=== PATIENT | female | born 1995 | race Caucasian/White ===

== ENCOUNTER 2017-01-19 19:05 | Emergency (ER) | payer BC ==
[2017-01-19 19:29] VITALS: BP 123/78
--- NOTE | 2017-01-19 19:52 | EDM.PDOC ---
ED HPI GENERAL MEDICAL PROBLEM - General Chief Complaint: Genitourinary Problem Stated Complaint: PELVIC PAIN Time Seen by Provider: 01/19/17 19:38 Source of Information: Reports: Patient, RN Notes Reviewed History Limitations: Reports: No Limitations - History of Present Illness INITIAL COMMENTS - FREE TEXT/NARRATIVE: 21-year-old female presents emergency department day complaint of pelvic pain, she states is been ongoing for 5 days was intermittent and now has progressed to a constant sharp stabbing pain lower left side she denies any vaginal bleeding or discharge last menstrual cycle was about 2-1/2 weeks ago is on control denies any fevers no problems with bowel movements or urination shortness of breath or chest pain 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 left sided pelvic pain Pain Score (Numeric/FACES): 4 - Related Data Allergies Allergy/AdvReac Type Severity Reaction Status Date / Time latex Allergy Hives Verified 01/19/17 19:26 Home Meds: Home Meds Levothyroxine [Sythroid] 100 mcg PO DAILY 04/21/16 [History] Past Medical History 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: Musculoskeletal History: Reports: Fracture Neurological History: Reports: Migraines Endocrine/Metabolic History: Reports: Hypothyroidism - Past Surgical History HEENT Surgical History: Reports: Oral Surgery GI Surgical History: Reports: Colonoscopy Social & Family History - Tobacco Use Smoking Status *Q: Current Every Day Smoker Years of Tobacco use: 3 Packs/Tins Daily: 0.5 - Caffeine Use Caffeine Use: Reports: Energy Drinks, Soda - Recreational Drug Use Recreational Drug Use: No ED ROS GENERAL - Review of Systems Review Of Systems: See Below Constitutional: Reports: No Symptoms HEENT: Reports: No Symptoms Respiratory: Reports: No Symptoms Cardiovascular: Reports: No Symptoms GI/Abdominal: Reports: No Symptoms : Reports: Pain (Pelvic pain). Denies: Discharge, Dysuria, Frequency, Hematuria, Irregular Menses, Urinary Retention Musculoskeletal: Reports: No Symptoms Skin: Reports: No Symptoms ED EXAM, RENAL/ - Physical Exam Exam: See Below Exam Limited By: No Limitations General Appearance: Alert, WD/WN, No Apparent Distress Respiratory/Chest: No Respiratory Distress, Lungs Clear, Normal Breath Sounds, No Accessory Muscle Use Cardiovascular: Regular Rate, Rhythm, No Murmur GI/Abdominal: Normal Bowel Sounds, Soft, No Distention, Tender (Left lower into the pelvis). No: Guarding, Rigid, Rebound Back Exam: Normal Inspection, Full Range of Motion. No: CVA Tenderness (R), CVA Tenderness (L) Course - Vital Signs Last Recorded V/S: Last Vital Signs Temp 99.1 F 01/19/17 19:28 Pulse 82 01/19/17 19:28 Resp 16 01/19/17 19:28 BP 123/78 01/19/17 19:28 Pulse Ox 100 01/19/17 19:28 - Orders/Labs/Meds Orders: Active Orders 24 hr Category Date Time Status Pelvis Non OB Comp [US] Urgent Exams 01/19/17 19:47 Taken Transvaginal Non OB [US] Stat Exams 01/19/17 Taken CULTURE URINE [RM] Urgent Lab 01/19/17 22:07 Ordered Labs: Laboratory Tests 01/19/17 01/19/17 01/19/17 Range/Units 19:27 19:58 19:58 WBC 8.4 (4.5-11.0) K/uL RBC 4.61 (3.30-5.50) M/uL Hgb 14.4 (12.0-15.0) g/dL Hct 41.7 (36.0-48.0) % MCV 91 (80-98) fL MCH 31 (27-31) pg MCHC 35 (32-36) % Plt Count 228 (150-400) K/uL Neut % (Auto) 47 (36-66) % Lymph % (Auto) 43 (24-44) % Bennett % (Auto) 7 H (2-6) % Eos % (Auto) 3 (2-4) % Baso % (Auto) 0 (0-1) % Sodium 138 L (140-148) mmol/L Potassium 4.0 (3.6-5.2) mmol/L Chloride 106 (100-108) mmol/L Carbon Dioxide 26 (21-32) mmol/L Anion Gap 10.0 (5.0-14.0) mmol/L BUN 12 (7-18) mg/dL Creatinine 0.8 (0.6-1.0) mg/dL Est Cr Clr Drug Dosing 100.10 mL/min Estimated GFR (MDRD) > 60 (>60) Glucose 88 (74-106) mg/dL Lactic Acid (0.4-2.0) mmol/L Calcium 8.5 (8.5-10.1) mg/dL Total Bilirubin 0.6 (0.2-1.0) mg/dL AST 14 L (15-37) U/L ALT 24 (12-78) U/L Alkaline Phosphatase 102 (46-116) U/L Total Protein 7.0 (6.4-8.2) g/dL Albumin 3.6 (3.4-5.0) g/dL Globulin 3.4 (2.3-3.5) g/dL Albumin/Globulin Ratio 1.1 L (1.2-2.2) Lipase 95 (73-393) U/L Urine Color Yellow Urine Appearance Clear Urine pH 5.0 (4.5-8.0) Ur Specific [place] 1.015 (1.008-1.030) Urine Protein Negative (NEGATIVE) mg/dL Urine Glucose (UA) Normal (NEGATIVE) mg/dL Urine Ketones Negative (NEGATIVE) mg/dL Urine Occult Blood Negative (NEGATIVE) Urine Nitrite Negative (NEGATIVE) Urine Bilirubin Negative (NEGATIVE) Urine Urobilinogen Normal (NORMAL) mg/dL Ur Leukocyte Esterase Moderate (NEGATIVE) Urine RBC 0-5 (0-5) Urine WBC 5-10 H (0-5) Ur Epithelial Cells Moderate Amorphous Sediment Few Urine Bacteria Few Urine Mucus Few Urine HCG, Qual 01/19/17 01/19/17 Range/Units 19:58 21:58 WBC (4.5-11.0) K/uL RBC (3.30-5.50) M/uL Hgb (12.0-15.0) g/dL Hct (36.0-48.0) % MCV (80-98) fL MCH (27-31) pg MCHC (32-36) % Plt Count (150-400) K/uL Neut % (Auto) (36-66) % Lymph % (Auto) (24-44) % Bennett % (Auto) (2-6) % Eos % (Auto) (2-4) % Baso % (Auto) (0-1) % Sodium (140-148) mmol/L Potassium (3.6-5.2) mmol/L Chloride (100-108) mmol/L Carbon Dioxide (21-32) mmol/L Anion Gap (5.0-14.0) mmol/L BUN (7-18) mg/dL Creatinine (0.6-1.0) mg/dL Est Cr Clr Drug Dosing mL/min Estimated GFR (MDRD) (>60) Glucose (74-106) mg/dL Lactic Acid 0.8 (0.4-2.0) mmol/L Calcium (8.5-10.1) mg/dL Total Bilirubin (0.2-1.0) mg/dL AST (15-37) U/L ALT (12-78) U/L Alkaline Phosphatase (46-116) U/L Total Protein (6.4-8.2) g/dL Albumin (3.4-5.0) g/dL Globulin (2.3-3.5) g/dL Albumin/Globulin Ratio (1.2-2.2) Lipase (73-393) U/L Urine Color Urine Appearance Urine pH (4.5-8.0) Ur Specific [place] (1.008-1.030) Urine Protein (NEGATIVE) mg/dL Urine Glucose (UA) (NEGATIVE) mg/dL Urine Ketones (NEGATIVE) mg/dL Urine Occult Blood (NEGATIVE) Urine Nitrite (NEGATIVE) Urine Bilirubin (NEGATIVE) Urine Urobilinogen (NORMAL) mg/dL Ur Leukocyte Esterase (NEGATIVE) Urine RBC (0-5) Urine WBC (0-5) Ur Epithelial Cells Amorphous Sediment Urine Bacteria Urine Mucus Urine HCG, Qual Negative Departure - Departure Time of Disposition: 22:09 Disposition: Home, Self-Care 01 Condition: Good Clinical Impression: Urinary tract infection Qualifiers: Urinary tract infection type: acute cystitis Hematuria presence: without hematuria Qualified Code(s): N30.00 - Acute cystitis without hematuria - Discharge Information Referrals: Hien Sherwood RN [Primary Care Provider] - Forms: ED Department Discharge Additional Instructions: Take full course of antibiotics, Please followup with your primary care provider in 3-5 days if not better, please call return to the emergency department with worsening of symptoms. - My Orders Last 24 Hours: My Active Orders 01/19/17 Transvaginal Non OB [US] Stat 01/19/17 19:47 Pelvis Non OB Comp [US] Urgent 01/19/17 22:07 CULTURE URINE [RM] Urgent - Assessment/Plan Last 24 Hours: My Active Orders 01/19/17 Transvaginal Non OB [US] Stat 01/19/17 19:47 Pelvis Non OB Comp [US] Urgent 01/19/17 22:07 CULTURE URINE [RM] Urgent Plan: Assessment Acuity = acute Site and laterality = urinary tract infection Etiology = probable bacterial cause Manifestations = none Location of injury = Home Lab values = CBC, CMP unremarkable urinalysis reveals 5-10 WBCs cultures pending Plan Placed on Bactrim DS one tab by mouth twice a day 3 days follow-up with primary care in 3-5 days if not better Patient was in agreement with the plan all questions were answered, they were instructed to return to the emergency department or call for worsening symptoms. This note was dictated using [employer] voice recognition software please call with any questions.
== END 2017-01-19 22:17 | disposition home or self-care (01) ==
LOC: JP.ED 19:05
DX: N30.00 Acute cystitis without hematuria (principal); F17.210 Nicotine dependence, cigarettes, uncomplicated; Z91.040 Latex allergy status
CPT/HCPCS: 36415; 76830; 76856; 80053; 81001; 81025; 83605; 83690; 85025; 87086; 99284-25

== ENCOUNTER 2018-04-06 19:46 | Emergency (ER) | payer BC, MEDICAID, OTHER ==
[2018-04-06 20:10] VITALS: BP 125/96
--- NOTE | 2018-04-06 20:34 | EDM.PDOC ---
ED HPI GENERAL MEDICAL PROBLEM - General Chief Complaint: Head Injury Stated Complaint: CONCUSSION Time Seen by Provider: 04/06/18 20:20 Source of Information: Reports: Patient History Limitations: Reports: No Limitations - History of Present Illness INITIAL COMMENTS - FREE TEXT/NARRATIVE: 23-year-old female who slipped on the ice and struck the back of her head on a running board of a pickup at 3 AM, went to work tonight at 5:00 but had to leave because of persistent headaches. No visual complaints, nausea or vomiting or significant neck pain. No peripheral paresthesias or weakness. 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: Musculoskeletal History: Reports: Fracture Neurological History: Reports: Migraines Psychiatric History: Reports: Anxiety, Depression Endocrine/Metabolic History: Reports: Hypothyroidism - Past Surgical History HEENT Surgical History: Reports: Oral Surgery GI Surgical History: Reports: Colonoscopy Social & Family History - Tobacco Use Smoking Status *Q: Current Every Day Smoker Years of Tobacco use: 7 Packs/Tins Daily: 0.5 - Caffeine Use Caffeine Use: Reports: Energy Drinks, Soda - Recreational Drug Use Recreational Drug Use: No ED ROS GENERAL - Review of Systems Review Of Systems: See Below Constitutional: Denies: Fever, Chills HEENT: Denies: Vision Change Respiratory: Denies: Shortness of Breath, Cough Cardiovascular: Denies: Chest Pain GI/Abdominal: Denies: Abdominal Pain, Nausea, Vomiting Skin: Reports: No Symptoms Neurological: Reports: Headache. Denies: Dizziness Psychiatric: Reports: No Symptoms ED EXAM, HEAD INJURY - Physical Exam Exam: See Below Exam Limited By: No Limitations General Appearance: Alert, No Apparent Distress Head: Other (The lower occipital area of the skull is tender to palpation but there is no significant hematoma. There is some soreness with rotation of the neck, but no limitation) Eyes: Bilateral Eye: Normal Inspection Throat/Mouth: Normal Inspection Neck: Full Range of Motion, Painful Range of Motion (Some soreness with rotation or side to side). No: Paraspinous Muscle Tender Respiratory: No Respiratory Distress Neurologic: No Motor/Sensory Deficits, Alert, Oriented x 3, Other (Romberg negative). No: Motor Weakness Skin: Normal Color - Yao Coma Score Best Eye Response (Yao): (4) Open Spontaneously Best Verbal Response ([place]): (5) Oriented Best Motor Response (Yao): (6) Obeys Commands Course - Vital Signs Last Recorded V/S: Last Vital Signs Temp 97.9 F 04/06/18 20:10 Pulse 95 04/06/18 20:10 Resp 18 04/06/18 20:10 BP 125/96 H 04/06/18 20:10 Pulse Ox 97 04/06/18 20:10 - Orders/Labs/Meds Meds: Medications Discontinued Medications Generic Name Dose Route Start Last Admin Trade Name Biq PRN Reason Stop Dose Admin Ibuprofen 600 mg 04/06/18 21:28 04/06/18 21:34 Motrin PO 04/06/18 21:29 600 mg ONETIME ONE Administration - Re-Assessments/Exams Free Text/Narrative Re-Assessment/Exam: 04/06/18 20:[address] of the head without contrast was obtained. 04/06/18 21:33 CT was normal. Patient was given 600 mg of ibuprofen and some information on a concussion. Also a note for work tonight. Departure - Departure Time of Disposition: 21:44 Disposition: Home, Self-Care 01 Condition: Good Clinical Impression: Concussion with no loss of consciousness - Discharge Information Instructions: Concussion, Adult, [id number] Referrals: PCP,None [Primary Care Provider] - Forms: ED Department Discharge Care Plan Goals: Rest tonight, use Tylenol or ibuprofen for headache over the next several days and recheck in 5-7 days if not improving satisfactorily. Return sooner if worsening or concerns.
[2018-04-06] MEDS ORDERED: Ibuprofen 600 MG Tab PO ONE (21:28)
== END 2018-04-06 21:44 | disposition home or self-care (01) ==
LOC: JP.ED 19:46
DX: S06.0X0A Concussion without loss of consciousness, initial encounter (principal); F17.210 Nicotine dependence, cigarettes, uncomplicated; E03.9 Hypothyroidism, unspecified; Z91.040 Latex allergy status; Z79.899 Other long term (current) drug therapy; W00.0XXA Fall on same level due to ice and snow, initial encounter
CPT/HCPCS: 70450; 99284; A9270; 99283

== ENCOUNTER 2018-08-01 19:24 | Emergency (ER) | payer BC ==
[2018-08-01 20:23] VITALS: BP 109/72
--- NOTE | 2018-08-01 20:28 | EDM.PDOC ---
ED HPI GENERAL MEDICAL PROBLEM - General Chief Complaint: Abdominal Pain Stated Complaint: STOMACH PAIN Time Seen by Provider: 08/01/18 20:15 Source of Information: Reports: Patient History Limitations: Reports: No Limitations - History of Present Illness INITIAL COMMENTS - FREE TEXT/NARRATIVE: 23-year-old female with left lower quadrant pain for the past 2 days. She had a similar issue several months ago and it was due to her IUD moving. She has no vaginal discharge or fever. Denies nausea or vomiting. No urinary symptoms. 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 (see below) Other Treatments DONOR RECRUITMENT MANAGER: unknown Left Abdomen Pain Score (Numeric/FACES): 4 - Related Data Allergies Allergy/AdvReac Type Severity Reaction Status Date / Time adhesive tape Allergy Rash Verified 08/01/18 20:14 latex Allergy Hives Verified 04/06/18 20:06 Home Meds: Home Meds Levothyroxine Sodium 8 mg PO DAILY 08/01/18 [History] Past Medical History Genitourinary History: Reports: Pyelonephritis, UTI, 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: Musculoskeletal History: Reports: Fracture Neurological History: Reports: Migraines Psychiatric History: Reports: Anxiety, Depression Endocrine/Metabolic History: Reports: Hypothyroidism - Past Surgical History HEENT Surgical History: Reports: Oral Surgery GI Surgical History: Reports: Colonoscopy Social & Family History - Family History Family Medical History: Noncontributory - Tobacco Use Smoking Status *Q: Current Every Day Smoker Years of Tobacco use: 7 Packs/Tins Daily: 0.5 Second Hand Smoke Exposure: No - Caffeine Use Caffeine Use: Reports: Soda - Recreational Drug Use Recreational Drug Use: No ED ROS GENERAL - Review of Systems Review Of Systems: See Below Constitutional: Denies: Fever, Chills, Malaise HEENT: Reports: No Symptoms Respiratory: Reports: No Symptoms GI/Abdominal: Reports: Abdominal Pain : Reports: No Symptoms Skin: Reports: No Symptoms ED EXAM, GI/ABD - Physical Exam Exam: See Below Exam Limited By: No Limitations General Appearance: Alert, No Apparent Distress (looks uncomfortable but not distressed) Eyes: Bilateral: Normal Appearance (no jaundice) Head: Atraumatic Respiratory/Chest: No Respiratory Distress, Lungs Clear Cardiovascular: Regular Rate, Rhythm GI/Abdominal Exam: Soft, Tender (some tenderness to palpation across the lower abdomen, especially the left side but no significant guarding. Minimal rebound.) Neurological: Alert, Oriented Psychiatric: Normal Affect, Normal Mood Skin Exam: Warm, Dry Course - Vital Signs Last Recorded V/S: Last Vital Signs Temp 96.9 F 08/01/18 20:22 Pulse 67 08/01/18 20:22 Resp 12 08/01/18 20:22 BP 109/72 08/01/18 20:22 Pulse Ox 98 08/01/18 20:22 - Orders/Labs/Meds Labs: Laboratory Tests 08/01/18 08/01/18 08/01/18 Range/Units 20:33 20:33 20:35 WBC 9.7 (4.5-11.0) K/uL RBC 4.58 (3.30-5.50) M/uL Hgb 14.4 D (12.0-15.0) g/dL Hct 42.8 (36.0-48.0) % MCV 93 (80-98) fL MCH 31 (27-31) pg MCHC 34 (32-36) % Plt Count 203 (150-400) K/uL Neut % (Auto) 54 (36-66) % Lymph % (Auto) 34 (24-44) % Terry % (Auto) 9 H (2-6) % Eos % (Auto) 3 (2-4) % Baso % (Auto) 1 (0-1) % Sodium (140-148) mmol/L Potassium (3.6-5.2) mmol/L Chloride (100-108) mmol/L Carbon Dioxide (21-32) mmol/L Anion Gap (5.0-14.0) mmol/L BUN (7-18) mg/dL Creatinine (0.6-1.0) mg/dL Est Cr Clr Drug Dosing mL/min Estimated GFR (MDRD) (>60) Glucose (74-106) mg/dL Calcium (8.5-10.1) mg/dL Total Bilirubin (0.2-1.0) mg/dL AST (15-37) U/L ALT (12-78) U/L Alkaline Phosphatase (46-116) U/L Total Protein (6.4-8.2) g/dL Albumin (3.4-5.0) g/dL Globulin (2.3-3.5) g/dL Albumin/Globulin Ratio (1.2-2.2) Urine Color Yellow Urine Appearance Slightly cloudy Urine pH 7.0 (4.5-8.0) Ur Specific [place] 1.010 (1.008-1.030) Urine Protein Trace (NEGATIVE) mg/dL Urine Glucose (UA) Normal (NEGATIVE) mg/dL Urine Ketones Negative (NEGATIVE) mg/dL Urine Occult Blood Negative (NEGATIVE) Urine Nitrite Negative (NEGATIVE) Urine Bilirubin Negative (NEGATIVE) Urine Urobilinogen Normal (NORMAL) mg/dL Ur Leukocyte Esterase Moderate (NEGATIVE) Urine RBC 0-5 (0-5) Urine WBC 5-10 H (0-5) Ur Epithelial Cells Few Amorphous Sediment Not seen Urine Bacteria Few Urine Mucus Not seen Urine HCG, Qual Negative 08/01/18 Range/Units 20:35 WBC (4.5-11.0) K/uL RBC (3.30-5.50) M/uL Hgb (12.0-15.0) g/dL Hct (36.0-48.0) % MCV (80-98) fL MCH (27-31) pg MCHC (32-36) % Plt Count (150-400) K/uL Neut % (Auto) (36-66) % Lymph % (Auto) (24-44) % Terry % (Auto) (2-6) % Eos % (Auto) (2-4) % Baso % (Auto) (0-1) % Sodium 140 (140-148) mmol/L Potassium 4.3 (3.6-5.2) mmol/L Chloride 102 (100-108) mmol/L Carbon Dioxide 28 (21-32) mmol/L Anion Gap 9.9 (5.0-14.0) mmol/L BUN 14 (7-18) mg/dL Creatinine 0.9 (0.6-1.0) mg/dL Est Cr Clr Drug Dosing 69.83 mL/min Estimated GFR (MDRD) > 60 (>60) Glucose 91 (74-106) mg/dL Calcium 9.0 (8.5-10.1) mg/dL Total Bilirubin 0.2 D (0.2-1.0) mg/dL AST 16 (15-37) U/L ALT 34 (12-78) U/L Alkaline Phosphatase 98 (46-116) U/L Total Protein 7.4 (6.4-8.2) g/dL Albumin 3.6 (3.4-5.0) g/dL Globulin 3.8 H (2.3-3.5) g/dL Albumin/Globulin Ratio 1.0 L (1.2-2.2) Urine Color Urine Appearance Urine pH (4.5-8.0) Ur Specific [place] (1.008-1.030) Urine Protein (NEGATIVE) mg/dL Urine Glucose (UA) (NEGATIVE) mg/dL Urine Ketones (NEGATIVE) mg/dL Urine Occult Blood (NEGATIVE) Urine Nitrite (NEGATIVE) Urine Bilirubin (NEGATIVE) Urine Urobilinogen (NORMAL) mg/dL Ur Leukocyte Esterase (NEGATIVE) Urine RBC (0-5) Urine WBC (0-5) Ur Epithelial Cells Amorphous Sediment Urine Bacteria Urine Mucus Urine HCG, Qual - Re-Assessments/Exams Free Text/Narrative Re-Assessment/Exam: 08/02/18 17:43 CBC CMP UA and urine test were obtained and were all very reassuring, and the was negative. Ultrasound of the pelvis was then obtained which showed normal placement of the IUD, significant stool but no other acute findings, no ovarian pathology. Patient will use MiraLAX for the next 1-2 days and return if worsening such as fever or increased pain, otherwise recheck in 2- 3 days if not improving satisfactorily. Departure - Departure Time of Disposition: 22:52 Disposition: Home, Self-Care 01 Condition: Good Clinical Impression: Abdominal pain Qualifiers: Abdominal location: left lower quadrant Qualified Code(s): R10.32 - Left lower quadrant pain - Discharge Information Instructions: Abdominal Pain, Adult, [id number] Referrals: Essie Hackett NP [Primary Care Provider] - Forms: ED Department Discharge Care Plan Goals: Try MiraLAX for the next few days and drink lots of water, increase activity as tolerated and return if worsening such as fever or increased pain.
--- NOTE | 2018-08-01 23:47 | CRLUS ---
INDICATION: Left lower quadrant pain TECHNIQUE: Ultrasound pelvis transabdominal. Real-time sonographic images with spectral and color Doppler imaging of the ovaries were obtained. COMPARISON: None FINDINGS: Uterus: 8.1 x 6.0 x 3.9 cm. Normal echotexture of the myometrium. No masses. Endometrium: Transvaginal imaging was performed to better evaluate the endometrium. 6 mm in thickness. No sign of endometrial mass or fluid. There is an IUD in place. Right ovary: 3.0 x 2.1 x 2.8 cm. No ovarian or adnexal masses. Normal Doppler blood flow. Left ovary: 3.0 x 2.6 x 1.8 cm. No ovarian or adnexal masses. Normal Doppler blood flow. Cul-de-sac: No significant free fluid. IMPRESSION: No acute abnormality. IUD appears appropriate in position. Dictated by Katerina Ash MD @ Aug 01 2018 11:44PM Signed by Dr. Katerina Ash @ Aug 01 2018 11:46PM
== END 2018-08-01 22:53 | disposition home or self-care (01) ==
LOC: JP.ED 19:24
DX: R10.32 Left lower quadrant pain (principal); F17.210 Nicotine dependence, cigarettes, uncomplicated; F41.9 Anxiety disorder, unspecified; F32.9 Major depressive disorder, single episode, unspecified; E03.9 Hypothyroidism, unspecified; Z79.899 Other long term (current) drug therapy; Z91.040 Latex allergy status; Z91.09 Other allergy status, other than to drugs and biological substances
CPT/HCPCS: 36415; 76856; 80053; 81001; 81025; 85025; 99284-25

== ENCOUNTER 2021-03-16 05:50 | Day surgery (SDC) | payer MEDICAID ==
[2021-03-16] MEDS ORDERED: Sodium Chloride 0.9% 1,000 ML IV SCH (06:30)
[2021-03-16] MEDS ORDERED: Bupivacaine 0.5% 50 ML MDV ONE (06:47)
[2021-03-16] MEDS ORDERED: Lidocaine 1% with EPINEPHrine 1:100,000 50 ML MDV ONE (06:47)
[2021-03-16] MEDS ORDERED: metroNIDAZOLE/Normal Saline 500 MG in Premix Bag 1 BAG IV ONE (07:00)
[2021-03-16] MEDS ORDERED: ceFAZolin 2 GM in Premix Bag 1 BAG IV ONE (07:00)
[2021-03-16] MEDS ORDERED: fentaNYL 250 MCG/5 ML SDV ONE (07:15)
[2021-03-16] MEDS ORDERED: Glycopyrrolate 0.2 MG/ML 5 ML MDV ONE (07:16)
[2021-03-16] MEDS ORDERED: Dexamethasone 4 MG/ML SDV ONE (07:16)
[2021-03-16] MEDS ORDERED: Ondansetron 4 MG/2 ML SDV ONE (07:16)
[2021-03-16] MEDS ORDERED: Succinylcholine 200 MG/10 ML MDV ONE (07:16)
[2021-03-16] MEDS ORDERED: Rocuronium 50 MG/5 ML Vial ONE (07:16)
[2021-03-16] MEDS ORDERED: Propofol 200 MG/20 ML SDV ONE (07:16)
[2021-03-16] MEDS ORDERED: Neostigmine Methylsulfate 1 MG/ML 5 ML Syringe ONE (07:16)
[2021-03-16] MEDS ORDERED: Ondansetron 4 MG/2 ML SDV IVPUSH PRN (07:53)
[2021-03-16] MEDS ORDERED: hydrOXYzine HCL 100 MG/2 ML SDV IM PRN (07:53)
[2021-03-16] MEDS ORDERED: fentaNYL 100 MCG/2 ML SDV IVPUSH PRN ×3 (07:53)
[2021-03-16] MEDS ORDERED: Acetaminophen/HYDROcodone 325-5 MG Tab PO PRN (07:53)
[2021-03-16] MEDS ORDERED: Zolpidem 5 MG Tab PO PRN (07:53)
[2021-03-16] MEDS ORDERED: Docusate Sodium 100 MG Cap PO PRN (07:53)
[2021-03-16] MEDS ORDERED: Benzocaine/Cetylpyridinium/Menthol Lozenge MUCMEM PRN (07:53)
[2021-03-16] MEDS ORDERED: Scopolamine 1.5 MG Transdermal Patch TOP SCH (08:00)
[2021-03-16] MEDS ORDERED: Ropivacaine 44 ML, dexAMETHasone 8 MG, EPINEPHrine 0.4 MG, Sodium Chloride 0.9% 33.6 ML NERVRT SCH ×4 (08:00)
[2021-03-16] MEDS ORDERED: fentaNYL 100 MCG/2 ML SDV ONE (08:28)
[2021-03-16] MEDS ORDERED: Ketorolac 30 MG/ML SDV ONE (08:42)
[2021-03-16] MEDS ORDERED: fentaNYL 100 MCG/2 ML SDV IVPUSH ONE (09:02)
[2021-03-16] MEDS ORDERED: Ondansetron 4 MG/2 ML SDV IVPUSH ONE (09:03)
--- NOTE | 2021-03-16 10:23 | OR ---
DATE OF PROCEDURE: 03/16/2021 SURGEON: Luigi Pugh MD PROCEDURE: Laparoscopic cholecystectomy. PREOPERATIVE DIAGNOSES: Cholelithiasis, cholecystitis. POSTOPERATIVE DIAGNOSES: Biliary dyskinesia, cholecystitis. RISKS: Risks, benefits, alternatives, and limitations including but not limited to infection, bleeding, perforation, false positives, false negatives, along with cystic duct leaks, common bile duct injuries, the possibility of open surgery, hematoma, seroma, and other risks not listed here were explained to the patient and she wished to proceed. PROCEDURE IN DETAIL: The patient was placed in supine position. A supraumbilical curvilinear incision was made. A Veress needle was used to enter the abdomen without abnormality. A drop test was performed without abnormality. The abdomen was subsequently insufflated. This was followed by an Optiview trocar. Additional 10 and two 5 mm ports were entered under direct visualization. The gallbladder was retracted cephalad. The infundibulum was retracted inferolaterally. Using blunt dissection, a "clear view" of the gallbladder was then obtained with a single pulsatile structure entering the gallbladder and a single non-pulsatile structure entering the gallbladder. After the clear view was obtained, these were subsequently clipped x3 and transected. The patient had additional small vein which was also clipped and subsequently transected. The remaining 1/3 of the gallbladder was removed off the gallbladder bed. The bag was delivered through the superior port. The liver was reinspected for evidence of abnormal bleeding. None was noted. The abdomen was irrigated with 1 L of irrigation. The liquid was removed. The air was removed. The wounds were closed with 3-0 Vicryl and 4-0 Vicryl in interrupted running fashion. The patient tolerated the procedure well. Luigi Pugh MD /[id number]
[2021-03-16 12:36] VITALS: BP 138/72; PULSE 71
== END 2021-03-16 13:09 | disposition home or self-care (01) ==
LOC: JP.SDS 05:50
PROVIDERS: ATTEND Surgery
DX: K81.1 Chronic cholecystitis (principal); E03.9 Hypothyroidism, unspecified; F41.9 Anxiety disorder, unspecified; F32.A Depression, unspecified; F17.210 Nicotine dependence, cigarettes, uncomplicated; Z98.890 Other specified postprocedural states; K21.9 Gastro-esophageal reflux disease without esophagitis; Z91.040 Latex allergy status
CPT/HCPCS: 47562; 81025; A9270; J0171; J0330; J0690; J1100; J1885; J2405; J2704; J2710; J2795; J3010; J3410; J3490; J7030

== ENCOUNTER 2021-03-19 05:17 | Emergency (ER) | payer MEDICAID ==
[2021-03-19 05:30] VITALS: BP 155/62; PULSE 62
[2021-03-19] MEDS ORDERED: Sodium Chloride 0.9% 10 ML Syringe FLUSH PRN (05:31)
[2021-03-19] MEDS ORDERED: Ondansetron 4 MG/2 ML SDV IVPUSH ONE ×2 (05:32→06:57)
[2021-03-19] MEDS ORDERED: HYDROmorphone 1 MG/ML Syringe IVPUSH ONE (05:32)
--- NOTE | 2021-03-19 05:38 | EDM.PDOC ---
ED HPI GENERAL MEDICAL PROBLEM - General Chief Complaint: Abdominal Pain Stated Complaint: POST OP PAIN Time Seen by Provider: 03/19/21 05:31 Source of Information: Reports: Patient History Limitations: Reports: No Limitations - History of Present Illness INITIAL COMMENTS - FREE TEXT/NARRATIVE: Imelda is a 25-year-old female presenting to the ED with severe abdominal pain, feeling hot, and nausea. Patient symptoms started around 0300 hrs. this morning when she awoke with severe abdominal pain. She last took her dose of [place] at 2000 hrs. last night. Her father gave her 3 Tylenol which has not touched the pain. The patient states the pain is a 10 out of 10 and is predominantly in the right upper quadrant and epigastric region. Since the onset, the patient states that the pain is been building in intensity. The patient underwent a laparoscopic cholecystectomy on 03/16/2021 which was performed by Dr. Pugh for cholecystitis/cholelithiasis. Abdomen Pain Score (Numeric/FACES): 8 - Related Data Allergies Allergy/AdvReac Type Severity Reaction Status Date / Time adhesive tape Allergy Rash Verified 03/16/21 06:29 latex Allergy Hives Verified 03/16/21 06:29 Home Meds: Home Meds Levothyroxine Sodium 88 mg PO DAILY 08/01/18 [History] levonorgestreL [Kyleena] 1 unit IUTERINE ASDIRECTED 03/13/21 [History] Acetaminophen/HYDROcodone [HYDROcodone-Acetaminophen 5-325 MG *] 2 tab PO ASDIRECTED 03/19/21 [History] Past Medical History Cardiovascular History: Reports: Other (See Below) Other Cardiovascular History: palpitations Gastrointestinal History: Reports: Cholelithiasis Genitourinary History: Reports: Pyelonephritis, UTI, Recurrent 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: 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: Musculoskeletal History: Reports: Fracture Neurological History: Reports: Migraines Psychiatric History: Reports: Anxiety, Depression Endocrine/Metabolic History: Reports: Hypothyroidism - Past Surgical History HEENT Surgical History: Reports: Oral Surgery GI Surgical History: Reports: Cholecystectomy, Colonoscopy Social & Family History - Family History Family Medical History: No Pertinent Family History - Tobacco Use Tobacco Use Status *Q: Unknown Ever Used Tobacco - Caffeine Use Caffeine Use: Reports: Energy Drinks ED ROS GENERAL - Review of Systems Review Of Systems: See Below Constitutional: Reports: Fever (Patient states she is feeling hot but did not actually check a temperature) HEENT: Reports: No Symptoms Respiratory: Reports: No Symptoms Cardiovascular: Reports: No Symptoms Endocrine: Reports: No Symptoms GI/Abdominal: Reports: Abdominal Pain (Right upper quadrant and epigastric severe abdominal pain radiating through to the back), Nausea : Reports: No Symptoms Musculoskeletal: Reports: Back Pain Skin: Reports: No Symptoms Neurological: Reports: No Symptoms Psychiatric: Reports: Anxiety Hematologic/Lymphatic: Reports: No Symptoms Immunologic: Reports: No Symptoms ED EXAM, GI/ABD - Physical Exam Exam: See Below Exam Limited By: No Limitations General Appearance: Alert, Anxious, Moderate Distress, Severe Distress Eyes: Bilateral: EOMI Throat/Mouth: Normal Inspection, Normal Oropharynx, Normal Voice, No Airway Compromise Head: Atraumatic, Normocephalic Neck: Normal Inspection, Supple Respiratory/Chest: No Respiratory Distress, Lungs Clear, Normal Breath Sounds, No Accessory Muscle Use, Other (Mild tachypnea) Cardiovascular: Normal Peripheral Pulses, Regular Rate, Rhythm, No Murmur GI/Abdominal Exam: Soft, Distended (Mild distention), Guarding, Rebound, Tender (Generalized tenderness with palpation of the abdomen with moderate to severe tenderness with palpation in the right upper quadrant and epigastric region as well as the left lower quadrant.), Abnormal Bowel Sounds (Diminished bowel sounds) Back Exam: Normal Inspection, Full Range of Motion Extremities: Normal Inspection Neurological: Alert, Oriented, Normal Cognition, No Motor/Sensory Deficits Psychiatric: Anxious Skin Exam: Warm, Dry, Wound/Incision (Incisions appear clean, dry, intact with Dermabond in place) Course - Vital Signs Last Recorded V/S: Last Vital Signs Temp 36.3 C 03/19/21 05:29 Pulse 62 03/19/21 05:29 Resp 18 03/19/21 05:29 BP 155/62 H 03/19/21 05:29 Pulse Ox 100 03/19/21 05:29 - Orders/Labs/Meds Labs: Laboratory Tests 03/19/21 03/19/21 03/19/21 Range/Units 05:46 05:46 05:46 WBC 10.9 (4.5-11.0) K/uL RBC 4.86 (3.30-5.50) M/uL Hgb 15.1 H (12.0-15.0) g/dL Hct 44.2 (36.0-48.0) % MCV 91 (80-98) fL MCH 31 (27-31) pg MCHC 34 (32-36) % Plt Count 214 (150-400) K/uL Neut % (Auto) 50.9 (36-66) % Lymph % (Auto) 33.6 (24-44) % Jerome % (Auto) 9.2 H (2-6) % Eos % (Auto) 5.7 H (2-4) % Baso % (Auto) 0.6 (0-1) % Sodium 138 L (140-148) mmol/L Potassium 3.6 (3.6-5.2) mmol/L Chloride 102 (100-108) mmol/L Carbon Dioxide 24 (21-32) mmol/L Anion Gap 15.6 H (5.0-14.0) mmol/L BUN 16 (7-18) mg/dL Creatinine 1.1 H (0.6-1.0) mg/dL Est Cr Clr Drug Dosing 67.51 mL/min Estimated GFR (MDRD) > 60 (>60) Glucose 107 H (74-106) mg/dL Lactic Acid 2.7 H (0.4-2.0) mmol/L Calcium 8.6 (8.5-10.1) mg/dL Total Bilirubin 0.3 (0.2-1.0) mg/dL AST 21 (15-37) U/L ALT 49 (12-78) U/L Alkaline Phosphatase 99 (46-116) U/L Total Protein 6.9 (6.4-8.2) g/dL Albumin 3.5 (3.4-5.0) g/dL Globulin 3.4 (2.3-3.5) g/dL Albumin/Globulin Ratio 1.0 L (1.2-2.2) Lipase 93 (73-393) U/L Urine Color (YELLOW) Urine Appearance (CLEAR) Urine pH (5.0-8.0) Ur Specific [place] (1.008-1.030) Urine Protein (NEGATIVE) mg/dL Urine Glucose (UA) (NEGATIVE) mg/dL Urine Ketones (NEGATIVE) mg/dL Urine Occult Blood (NEGATIVE) Urine Nitrite (NEGATIVE) Urine Bilirubin (NEGATIVE) Urine Urobilinogen (0.2-1.0) EU/dL Ur Leukocyte Esterase (NEGATIVE) Urine RBC (0-5) Urine WBC (0-5) Ur Epithelial Cells Amorphous Sediment Urine Bacteria Urine Mucus 03/19/21 Range/Units 07:02 WBC (4.5-11.0) K/uL RBC (3.30-5.50) M/uL Hgb (12.0-15.0) g/dL Hct (36.0-48.0) % MCV (80-98) fL MCH (27-31) pg MCHC (32-36) % Plt Count (150-400) K/uL Neut % (Auto) (36-66) % Lymph % (Auto) (24-44) % Jerome % (Auto) (2-6) % Eos % (Auto) (2-4) % Baso % (Auto) (0-1) % Sodium (140-148) mmol/L Potassium (3.6-5.2) mmol/L Chloride (100-108) mmol/L Carbon Dioxide (21-32) mmol/L Anion Gap (5.0-14.0) mmol/L BUN (7-18) mg/dL Creatinine (0.6-1.0) mg/dL Est Cr Clr Drug Dosing mL/min Estimated GFR (MDRD) (>60) Glucose (74-106) mg/dL Lactic Acid (0.4-2.0) mmol/L Calcium (8.5-10.1) mg/dL Total Bilirubin (0.2-1.0) mg/dL AST (15-37) U/L ALT (12-78) U/L Alkaline Phosphatase (46-116) U/L Total Protein (6.4-8.2) g/dL Albumin (3.4-5.0) g/dL Globulin (2.3-3.5) g/dL Albumin/Globulin Ratio (1.2-2.2) Lipase (73-393) U/L Urine Color Yellow (YELLOW) Urine Appearance Slightly cloudy A (CLEAR) Urine pH 6.0 (5.0-8.0) Ur Specific [place] 1.015 (1.008-1.030) Urine Protein Negative (NEGATIVE) mg/dL Urine Glucose (UA) Negative (NEGATIVE) mg/dL Urine Ketones Negative (NEGATIVE) mg/dL Urine Occult Blood Trace-intact H (NEGATIVE) Urine Nitrite Negative (NEGATIVE) Urine Bilirubin Negative (NEGATIVE) Urine Urobilinogen 0.2 (0.2-1.0) EU/dL Ur Leukocyte Esterase Negative (NEGATIVE) Urine RBC 0-5 (0-5) Urine WBC Not seen (0-5) Ur Epithelial Cells Moderate Amorphous Sediment Rare Urine Bacteria Few Urine Mucus Not seen Meds: Medications Discontinued Medications Generic Name Dose Route Start Last Admin Trade Name Freq PRN Reason Stop Dose Admin Hydromorphone HCl 1 mg 03/19/21 05:32 03/19/21 05:38 Hydromorphone 1 Mg/Ml Syringe IVPUSH 03/19/21 05:33 1 mg ONETIME ONE Administration Hydromorphone HCl 0.5 mg 03/19/21 06:07 03/19/21 06:12 Hydromorphone 0.5 Mg/0.5 Ml Syringe IVPUSH 03/19/21 06:08 0.5 mg ONETIME ONE Administration Sodium Chloride 79 mls @ 3.5 mls/sec 03/19/21 05:48 03/19/21 06:00 Normal Saline IV 03/19/21 05:49 3.5 mls/sec ASDIRECTED STA Administration Sodium Chloride 1,000 mls @ 500 mls/hr 03/19/21 06:15 03/19/21 06:12 Normal Saline IV 500 mls/hr ASDIRECTED LIDA Administration Iopamidol 129 ml 03/19/21 05:48 03/19/21 06:00 Iopamidol 612 Mg/Ml 150 Ml Bottle IV 03/19/21 05:49 150 ml . DIRECTED STA Administration Ondansetron HCl 4 mg 03/19/21 05:32 03/19/21 05:38 Ondansetron 4 Mg/2 Ml Sdv IVPUSH 03/19/21 05:33 4 mg ONETIME ONE Administration Ondansetron HCl 4 mg 03/19/21 06:57 03/19/21 07:02 Ondansetron 4 Mg/2 Ml Sdv IVPUSH 03/19/21 06:58 4 mg ONETIME ONE Administration Scopolamine 1.5 mg 03/19/21 08:09 03/19/21 08:30 Scopolamine 1.5 Mg Transdermal Patch TRDERM 03/19/21 08:10 1.5 mg Q72H ONE Administration Sodium Chloride 10 ml 03/19/21 05:31 03/19/21 05:39 Sodium Chloride 0.9% 10 Ml Syringe FLUSH 10 ml ASDIRECTED PRN Administration Keep Vein Open - Radiology Interpretation Free Text/Narrative:: I reviewed the images of the CT of the abdomen and pelvis with contrast as well as the report. The report is as follows: FINDINGS: Lower chest: Unremarkable. Liver: Unremarkable. Normal in size and attenuation. No suspicious masses. Gallbladder and bile ducts: Post cholecystectomy. No postoperative complications evident. No abscess or hematoma. No biliary dilatation. Pancreas: Unremarkable. No mass or inflammation. Spleen: Unremarkable. Normal in size. No masses. Adrenal glands: Unremarkable. No nodules. Kidneys: Unremarkable. No suspicious masses, stones, or hydronephrosis. GI tract: Unremarkable. Normal in caliber. No sign of mass or inflammation. Normal appendix. Vasculature: Unremarkable. Mesenteric arteries are patent. Lymph nodes: No lymphadenopathy. Omentum/Peritoneum/Abdominal Wall: Minimal free air in the abdomen consistent with postoperative state. No fluid collections or mass. Pelvis: IUD is in proper position. Pelvic structures are unremarkable. Bones: Unremarkable for age. IMPRESSION: There are expected and unremarkable postoperative changes from a recent cholecystectomy. No postoperative complications or other acute or specific findings to explain abdominal pain. Please note that all CT scans at this facility use dose modulation, iterative reconstruction, and/or weight-based dosing when appropriate to reduce radiation dose to as low as reasonably achievable. Dictated by Tu Dumont MD @ 03/19/2021 6:37:31 AM I reviewed the two-view chest x-ray showing no acute abnormalities. Normal cardiac silhouette. No evidence for infiltrates or hilar adenopathy. - Re-Assessments/Exams Free Text/Narrative Re-Assessment/Exam: 03/19/21 05:37 the patient was given Zofran 4 mg IV and Dilaudid 1 mg IV for nausea and pain control. We will get a CBC, comprehensive metabolic panel, lipase and lactate to evaluate for her symptoms as well as a CT of the abdomen and pelvis with contrast. 03/19/21 06:45 I reviewed the patient's labs showing leukocyte count of 10.9, hemoglobin of 15.1, and platelet count of 214,000. The patient's comprehensive metabolic panel shows a sodium 138, potassium 3.6, chloride 102, bicarbonate of 24, BUN of 16 with a creatinine 1.1 and a glucose of 107. Patient's calcium is 8.6. AST, ALT, alkaline phosphatase are all normal. Bilirubin is normal. Lipase is normal at 93. Venous lactic acid is elevated at 2.7. I am unsure what is causing the elevation of the venous lactate especially with a normal leukocyte count and differential, however, I did discuss the case with Dr. Pugh who recommended that we check a chest x-ray and urinalysis. The patient's pain is currently down to a 4 out of 10 after receiving Dilaudid 1.5 mg IV. She is also receiving IV hydration. Dr. Pugh will be in to evaluate the patient. 03/19/21 06:54 the patient does state that her pain currently is a 4 out of 10. She also reports that since having surgery she kind of has been overdoing it with eating because it is the first time in 10 years when she eats she does not get sick or have pain. She has had some constipation but is not on any stool softeners and does have a fair amount of stool throughout the colon. Care of the patient will be turned over to Dr. Pastrana at [address] Pugh's evaluation of the patient. I suspect that she will need to be sta rted on stool softeners and can go home given the results of her tests. Departure - Departure Time of Disposition: 08:34 Disposition: Home, Self-Care 01 Clinical Impression: Postoperative pain, Elevated lactic acid level - Discharge Information Instructions: Acute Pain, Adult Referrals: PCP,None [Primary Care Provider] - Forms: ED Department Discharge
[2021-03-19] MEDS ORDERED: Iopamidol 612 MG/ML 150 ML Bottle IV STA (05:48)
[2021-03-19] MEDS ORDERED: HYDROmorphone 0.5 MG/0.5 ML Syringe IVPUSH ONE (06:07)
[2021-03-19] MEDS ORDERED: Sodium Chloride 0.9% 1,000 ML IV SCH (06:15)
--- NOTE | 2021-03-19 06:39 | CRLCT ---
For Patients: As a result of the Century Cures Act, medical imaging exams and procedure reports are released immediately into your electronic medical record. You may view this report before your referring provider. If you have questions, please contact your health care provider. INDICATION: Three days status post cholecystectomy with severe abdominal pain. TECHNIQUE: CT abdomen and pelvis acquired with 129 cc Isovue-300 IV contrast. COMPARISON: None. FINDINGS: Lower chest: Unremarkable. Liver: Unremarkable. Normal in size and attenuation. No suspicious masses. Gallbladder and bile ducts: Post cholecystectomy. No postoperative complications evident. No abscess or hematoma. No biliary dilatation. Pancreas: Unremarkable. No mass or inflammation. Spleen: Unremarkable. Normal in size. No masses. Adrenal glands: Unremarkable. No nodules. Kidneys: Unremarkable. No suspicious masses, stones, or hydronephrosis. GI tract: Unremarkable. Normal in caliber. No sign of mass or inflammation. Normal appendix. Vasculature: Unremarkable. Mesenteric arteries are patent. Lymph nodes: No lymphadenopathy. Omentum/Peritoneum/Abdominal Wall: Minimal free air in the abdomen consistent with postoperative state. No fluid collections or mass. Pelvis: IUD is in proper position. Pelvic structures are unremarkable. Bones: Unremarkable for age. IMPRESSION: There are expected and unremarkable postoperative changes from a recent cholecystectomy. No postoperative complications or other acute or specific findings to explain abdominal pain. Please note that all CT scans at this facility use dose modulation, iterative reconstruction, and/or weight-based dosing when appropriate to reduce radiation dose to as low as reasonably achievable. Dictated by Tu Dumont MD @ 03/19/2021 6:37:31 AM (Electronically Signed)
[2021-03-19] MEDS ORDERED: Scopolamine 1.5 MG Transdermal Patch TRDERM ONE (08:09)
--- NOTE | 2021-03-19 12:39 | CR ---
CHEST: 2 view CLINICAL HISTORY:Elevated lactic acid COMPARISON:None FINDINGS: There is some scattered nodularity in the left lung. No infiltrates are seen. Heart and pulmonary vascularity are normal. IMPRESSION: Scattered tiny nodules left lung. These may be granulomatous. Comparison with prior studies of be helpful. If there are no prior chest x-rays are either short-term follow-up or CT chest is recommended
== END 2021-03-19 08:35 | disposition home or self-care (01) ==
LOC: JP.ED 05:17
DX: G89.18 Other acute postprocedural pain (principal); R10.11 Right upper quadrant pain; R74.02 Elevation of levels of lactic acid dehydrogenase [LDH]; E03.9 Hypothyroidism, unspecified; Z79.899 Other long term (current) drug therapy; Z91.040 Latex allergy status; Z91.048 Other nonmedicinal substance allergy status; Z90.49 Acquired absence of other specified parts of digestive tract
CPT/HCPCS: 36415; 71046; 71046-26; 74177; 80053; 81001; 83605; 83690; 85025; 96374; 96375; 96376; 99284-25; A9270-GY; J1170; J2405; J7030; Q9967

== ENCOUNTER 2021-06-11 06:16 | Emergency (ER) | payer MEDICAID ==
[2021-06-11 06:27] VITALS: BP 123/87; PULSE 88
[2021-06-11] MEDS ORDERED: HYDROmorphone 0.5 MG/0.5 ML Syringe IM ONE (06:47)
[2021-06-11] MEDS ORDERED: HYDROmorphone 1 MG/ML Syringe IM ONE (06:53)
[2021-06-11] MEDS ORDERED: Ondansetron 4 MG Tab.DIS PO ONE (07:35)
[2021-06-11] MEDS ORDERED: Ketorolac 30 MG/ML SDV IM ONE (07:36)
[2021-06-11] MEDS ORDERED: Cyclobenzaprine 10 MG Tab PO ONE (07:39)
== END 2021-06-11 09:04 | disposition home or self-care (01) ==
LOC: JP.ED 06:16
DX: G89.29 Other chronic pain (principal); M54.50 Low back pain, unspecified; E03.9 Hypothyroidism, unspecified; Z79.899 Other long term (current) drug therapy; Z91.048 Other nonmedicinal substance allergy status; Z91.040 Latex allergy status; Z86.16 Personal history of COVID-19
CPT/HCPCS: 81001; 96372; 99282; 99283; A9270-GY; J1170; J1885; Q0162

== ENCOUNTER 2021-10-28 14:19 | Emergency (ER) | payer MEDICAID ==
[2021-10-28 15:00] VITALS: BP 129/53; PULSE 72
== END 2021-10-28 16:32 | disposition left against medical advice (07) ==
LOC: JP.ED 14:19
DX: Z53.21 Procedure and treatment not carried out due to patient leaving prior to being seen by health care provider (principal)

== ENCOUNTER 2021-11-16 06:31 | Day surgery (SDC) | payer MEDICAID ==
[2021-11-16] MEDS ORDERED: Sodium Chloride 0.9% 1,000 ML IV SCH (07:00)
[2021-11-16] MEDS ORDERED: fentaNYL 100 MCG/2 ML SDV ONE (07:12)
[2021-11-16] MEDS ORDERED: Propofol 200 MG/20 ML SDV ONE (07:12)
[2021-11-16] MEDS ORDERED: Midazolam 1 MG/ML 2 ML SDV ONE (07:12)
[2021-11-16 09:04] VITALS: BP 117/68; PULSE 59
== END 2021-11-16 09:06 ==
LOC: JP.SDS 06:31
PROVIDERS: ATTEND Surgery
DX: K21.9 Gastro-esophageal reflux disease without esophagitis (principal); K44.9 Diaphragmatic hernia without obstruction or gangrene; Q21.1 Atrial septal defect; F41.9 Anxiety disorder, unspecified; E78.5 Hyperlipidemia, unspecified; Z91.040 Latex allergy status; Z79.810 Long term (current) use of selective estrogen receptor modulators (SERMs); Z79.899 Other long term (current) drug therapy
CPT/HCPCS: 43239; 81025; 88305; J2250; J2704; J3010; J7030